=== PATIENT | male | born 1985 | race Caucasian/White ===

== ENCOUNTER → 2020-03-23 | Outpatient (CLI) | payer BC ==
[~2020-03-23] MED LIST: LEVFLO500 PO
== END | disposition home or self-care (01) ==
LOC: LAB SHORT 17:12 → LAB 17:12
DX: J02.9 Acute pharyngitis, unspecified (principal)
CPT/HCPCS: 87081

== ENCOUNTER → 2021-06-06 | Outpatient (CLI) | payer BC | LOC: LAB SHORT 10:00 → LAB 10:00 | DX: S60.414A Abrasion of right ring finger, initial encounter (principal) | CPT/HCPCS: 87070; 87205 ==